=== PATIENT | female | born 1965 | race Caucasian/White ===

== ENCOUNTER 2017-05-27 16:26 | Emergency (ER) | payer OTHER ==
[2017-05-27 16:40] VITALS: BP 146/84
--- NOTE | 2017-05-27 16:58 | UC ---
Dental HPI - HPI Summary HPI Summary: dental pain x 5 days had a crown place few months ago , no the same tooth is painful - History of Current Complaint Chief Complaint: UCDentalProblem Stated Complaint: TOOTH PAIN Time Seen by Provider: 05/27/17 16:49 Hx Obtained From: Patient Hx Last Menstrual Period: 2010 had uterine ablation ?: No Onset/Duration: Gradual Onset, Lasting Days - 7, Still Present Severity: Moderate Aggravating Factor(s): Cold, Chewing Alleviating Factor(s): Nothing Dental: 1 - tenderness - Allergies/Home Medications Allergies/Adverse Reactions: Allergies Allergy/AdvReac Type Severity Reaction Status Date / Time No Known Allergies Allergy Verified 05/27/17 16:34 Home Medications: Home Medications Albuterol HFA INHALER* [Ventolin HFA Inhaler*] 1 puff Q4HR PRN 05/27/17 [ History Confirmed 05/27/17] PMH/Surg Hx/FS Hx/Imm Hx Respiratory History: Asthma Psychological History: Anxiety - Surgical History Surgical History: Yes Surgery Procedure, Year, and Place: uterine ablation. 4 c-sections. T & A. foot surgery - Family History Known Family History: Negative: Diabetes - Social History Alcohol Use: None Substance Use Type: None Smoking Status (MU): Former Smoker When Did the Patient Quit Smoking/Using Tobacco: 2 years ago - Immunization History Most Recent Influenza Vaccination: NONE 2017 Review of Systems Constitutional: Negative Skin: Negative Eyes: Negative ENT: Dental Pain Respiratory: Negative Cardiovascular: Negative Gastrointestinal: Negative Genitourinary: Negative Is Patient Immunocompromised?: No All Other Systems Reviewed And Are Negative: Yes Physical Exam Triage Information Reviewed: Yes Appearance: Well-Appearing, No Pain Distress, Well-Nourished Vital Signs: Initial Vital Signs Temp 97.9 F 05/27/17 16:36 Pulse 63 05/27/17 16:36 Resp 16 05/27/17 16:36 BP 146/84 05/27/17 16:36 Pulse Ox 100 05/27/17 16:36 Vital Signs Reviewed: Yes Eyes: Positive: Conjunctiva Clear ENT: Positive: Normal ENT inspection, Hearing grossly normal, Pharynx normal Dental: Positive: Percussion Tenderness @ - #11 Neck: Positive: Supple, Nontender, No Lymphadenopathy Respiratory: Positive: Chest non-tender, Lungs clear, Normal breath sounds Cardiovascular: Positive: RRR, No Murmur, Pulses Normal Skin Exam: Normal Dental Complaint Course/Dx - Differential Dx/Diagnosis Provider Diagnoses: dental pain Discharge - Discharge Plan Condition: Stable Disposition: HOME Prescriptions: Cephalexin CAP* [Keflex 500 CAP*] 500 mg PO TID #30 cap Ibuprofen TAB* [Motrin TAB* 600 MG] 600 mg PO Q8H PRN #25 tab PRN Reason: Pain Patient Education Materials: Toothache (ED) Referrals: Yoel Gibbons PA [Primary Care Provider] - 2 Weeks
== END 2017-05-27 17:02 | disposition home or self-care (01) ==
LOC: UCCORT 16:26
DX: K08.89 Other specified disorders of teeth and supporting structures (principal); J45.909 Unspecified asthma, uncomplicated; F41.9 Anxiety disorder, unspecified
CPT/HCPCS: 99212; G0463

== ENCOUNTER 2017-09-15 10:09 | Emergency (ER) | payer OTHER ==
[2017-09-15 11:02] VITALS: BP 131/88
--- NOTE | 2017-09-15 12:32 | UC ---
Upper Extremity HPI - HPI Summary HPI Summary: NOTICED A PAINFUL LUMP ON LEFT COLLARBONE LAST NIGHT. NO TRAUMA OR INJURY. ADVIL HELPFUL. - History of Current Complaint Chief Complaint: UCGeneralIllness Stated Complaint: LUMP ON CHEST Time Seen by Provider: 09/15/17 12:15 Hx Obtained From: Patient Hx Last Menstrual Period: 2010 had uterine ablation Onset/Duration: Sudden Onset, Still Present Severity Initially: Moderate Severity Currently: Moderate Pain Intensity: 8 Pain Scale Used: 0-10 Numeric Location Of Pain: Is Discrete @ - LEFT CLAVICLE Character: Dull Aggravating Factor(s): Other - TOUCH Alleviating Factor(s): Nothing - Allergies/Home Medications Allergies/Adverse Reactions: Allergies Allergy/AdvReac Type Severity Reaction Status Date / Time No Known Allergies Allergy Verified 09/15/17 10:55 Home Medications: Home Medications Ibuprofen TAB* [Motrin TAB* 600 MG] 400 mg PO Q8H PRN 09/15/17 [History Confirmed 09/15/17] PMH/Surg Hx/FS Hx/Imm Hx Respiratory History: Asthma Psychological History: Anxiety - Surgical History Surgical History: Yes Surgery Procedure, Year, and Place: uterine ablation. 4 c-sections. T & A. foot surgery - Family History Known Family History: Negative: Hypertension, Diabetes - Social History Alcohol Use: None Substance Use Type: None Smoking Status (MU): Former Smoker When Did the Patient Quit Smoking/Using Tobacco: 2 years ago - Immunization History Most Recent Influenza Vaccination: NONE 2017 Review of Systems Constitutional: Negative Skin: Negative Respiratory: Negative Cardiovascular: Negative Gastrointestinal: Negative Musculoskeletal: Other: - CLAVICLE TENDER LESION All Other Systems Reviewed And Are Negative: Yes Physical Exam Triage Information Reviewed: Yes Appearance: Well-Appearing, No Pain Distress, Well-Nourished Vital Signs: Initial Vital Signs Temp 97 F 09/15/17 10:56 Pulse 65 09/15/17 10:56 Resp 16 09/15/17 10:56 BP 131/88 09/15/17 10:56 Pulse Ox 100 09/15/17 10:56 Vital Signs Reviewed: Yes Eyes: Positive: Conjunctiva Clear ENT: Positive: Hearing grossly normal Neck: Positive: Supple Respiratory: Positive: No respiratory distress, No accessory muscle use Cardiovascular: Positive: Pulses Normal Abdomen Description: Positive: Soft Musculoskeletal: Positive: No Edema, Other: - TENDER, CYSTIC LESION PALPATED DISTAL LEFT CLAVICLE. NO ERYTHEMA Neurological: Positive: Alert Psychological: Positive: Age Appropriate Behavior Skin: Negative: rashes Diagnostics - Radiology LEFT CLAVICLE XRAY Xray Interpretation: No Acute Changes Radiology Interpretation Completed By: Radiologist Upper Extremity Course/Dx - Differential Dx/Diagnosis Provider Diagnoses: CYST OVERLYING LEFT CLAVICLE Discharge - Discharge Plan Condition: Stable Disposition: HOME Patient Education Materials: Ganglion Cysts (ED) Referrals: Spencer Comer MD [Medical Doctor] - 1 Week Yoel Gibbons PA [Primary Care Provider] - If Needed Additional Instructions: XRAY TODAY UNREMARKABLE. CLINICALLY SEEMS LIKE A CYST - NOT INFECTED. FOLLOW-UP WITH ORTHO FOR FURTHER EVAL AND TO DISCUSS TREATMENT OPTIONS.
--- NOTE | 2017-09-15 12:55 | RAD ---
HISTORY: Painful lump over medial left clavicle COMPARISONS: None VIEWS: 2, frontal and frontal oblique views of the left clavicle FINDINGS: BONE DENSITY: Normal. BONES: There is no displaced fracture. JOINTS: There is no arthropathy. ALIGNMENT: There is no dislocation. SOFT TISSUES: Unremarkable. OTHER FINDINGS: None. IMPRESSION: NO ACUTE OSSEOUS INJURY. IF SYMPTOMS PERSIST, RECOMMEND REPEAT IMAGING. A NEGATIVE REPORT SHOULD NOT PRECLUDE OR DELAY THE EVALUATION OF A CLINICALLY SUSPICIOUS PALPABLE ABNORMALITY
== END 2017-09-15 13:34 | disposition home or self-care (01) ==
LOC: UCCORT 10:09
DX: L72.9 Follicular cyst of the skin and subcutaneous tissue, unspecified (principal); Z87.891 Personal history of nicotine dependence
CPT/HCPCS: 99211; G0463